=== PATIENT | female | born 1970 | race Caucasian/White ===

== ENCOUNTER → 2020-10-17 16:58 | Outpatient (CLI) | payer OTHER, SELFPAY ==
[2020-10-17 18:25] LABS: Erythrocyte Sedimentation Rate 44 mm/hr (0-30)
[2020-10-20 17:16] LABS: RMSF, IgG, EIA Positive (Negative)
[2020-10-21 04:10] LABS: Antinuclear Antibodies, IFA Negative (.)
== END ==
PROVIDERS: Visit Provider Family Medicine
DX: R53.83 Other fatigue (principal)
CPT/HCPCS: 85651; 86038; 86609

== ENCOUNTER → 2020-11-01 14:18 | Outpatient (CLI) | payer OTHER, SELFPAY | PROVIDERS: PCP Family Medicine; Visit Provider Family Medicine | DX: E10.9 Type 1 diabetes mellitus without complications (principal); R53.83 Other fatigue | CPT/HCPCS: 93306 ==